=== PATIENT | female | born 1965 | race Caucasian/White ===

== ENCOUNTER 2019-06-08 15:23 | Inpatient (IN) | payer BC ==
[~2019-06-08] VITALS: Ht 162.6 cm; Wt 72.6 kg
[2019-06-08] MEDS ORDERED: ACETAMINOPHEN ES 500 MG TABLET PO ONE (15:45)
[2019-06-08] MEDS ORDERED: IV NORMAL SALINE 1000 ML BAG IV ONE (15:45)
--- NOTE | 2019-06-08 15:50 | NUR ---
Patient ambulated with stable gait. Speech is clear, speaks in complete sentences. A/Ox4. No acute neuro deficits noted. Patient came for a wound check which she thinks is possibly infected. According to patient, she had a procedure for tummy tuck a few weeks ago; patient had a tummy tuck and has a drain in place. Respiratory even and unlabored, no cough no sob. No cardiovascular distress noted, all pulses palpable. Denies any n/v/d. Patient in bed at lowest position, sr upx2, call light within reach. Fall precautions implemented per protocol.
[2019-06-08] MEDS ORDERED: ACETAMINOPHEN ES 500 MG TABLET ONE (15:53)
[2019-06-08] MEDS ORDERED: IOHEXOL 300MG/ML 100 ML INFUS..BTL ONE (15:55)
[2019-06-08] MEDS ORDERED: SWABABLE VALVE TRANSFER SET EA MC ONE (15:55)
[2019-06-08] MEDS ORDERED: IV NORMAL SALINE 250 ML IV ONE (15:55)
[2019-06-08 16:05] LABS: BASOPHILS % (AUTO) 0.9 % (0.0-2.0); EOSINOPHILS # (AUTO) 0.2 K/uL (0.0-0.7); EOSINOPHILS % (AUTO) 5.2 % (0.0-7.0); HEMATOCRIT 27.1 % (31.2-41.9); HEMOGLOBIN 8.7 g/dL (10.9-14.3); LYMPHOCYTES # (AUTO) 0.9 K/uL (20.0-40.0); LYMPHOCYTES % (AUTO) 26.8 % (20.5-51.5); MEAN CORPUSCULAR HEMOGLOBIN 28.4 uug (24.7-32.8); MEAN CORPUSCULAR HGB CONC 32 g/dL (32.3-35.6); MEAN CORPUSCULAR VOLUME 88.3 fL (75.5-95.3); MONOCYTES # (AUTO) 0.3 K/uL (2.0-10.0); MONOCYTES % (AUTO) 7.7 % (0.0-11.0); NEUTROPHILS % (AUTO) 59.4 % (38.5-71.5); PLATELET COUNT (AUTO) 184 K/uL (179-408); RED BLOOD CELL COUNT(AUTO) 3.07 MIL/uL (3.63-4.92); WHITE BLOOD COUNT (AUTO) 3.3 K/uL (3.8-11.8)
[2019-06-08 16:15] LABS: CREATININE 0.8 mg/dL (0.6-1.3)
--- NOTE | 2019-06-08 16:26 | NUR ---
Patient transported to CT in stable condition. NAD, VSS
[2019-06-08 16:27] LABS: BILIRUBIN,DIRECT 0.2 mg/dL (0.0-0.2); BILIRUBIN,TOTAL 0.8 mg/dL (0.2-1.0); TOTAL PROTEIN, SERUM 7.1 g/dL (6.4-8.2)
--- NOTE | 2019-06-08 16:44 | NUR ---
Patient back in room from CT in stable condition.
[2019-06-08] MEDS ORDERED: PIPERACILLIN/TAZOBACTAM/D5W 50 ML IV ONE (16:59)
[2019-06-08] MEDS ORDERED: VANCOMYCIN IV 1,000 MG in IV DEXTROSE 5% 250 ML IV ONE (17:00)
[2019-06-08] MEDS ORDERED: VANCOMYCIN IV 200 ML ONE (17:00)
[2019-06-08] MEDS ORDERED: PIPERACILLIN SODIUM/TAZOBACTAM 3.375 G in IV DEXTROSE 5% 50 ML IV ONE (17:00)
[2019-06-08] MEDS ORDERED: CEPH500C2 PO (17:06)
[2019-06-08] MEDS ORDERED: ACET-2154 PO (17:07)
[2019-06-08 17:33] LABS: *BILIRUBIN,URIN NEGATIVE (NEGATIVE); *BLOOD, URINE NEGATIVE (NEGATIVE); *CLARITY,URINE CLEAR (CLEAR); *COLOR,URINE YELLOW (YELLOW); *KETONES,URINE NEGATIVE (NEGATIVE); LEUKOCYTE ESTERASE ,URINE NEGATIVE (NEGATIVE); NITRITE, URINE NEGATIVE (NEGATIVE); UGLUCOSE NEGATIVE (NEGATIVE)
[2019-06-08 17:37] LABS: *URINE HCG, QUAL NEGATIVE (NEGATIVE)
[2019-06-08 17:40] LABS: BACTERIA,URINE NONE SEEN /HPF (NONE SEEN); RBC,URINE 0-3 /HPF (0-3); SQUAMOUS EPITHELIAL CELL,UR FEW /HPF (NONE SEEN); WBC,URINE 0-3 /HPF (0-3)
--- NOTE | 2019-06-08 17:40 | NUR ---
Dr. Azul on the line with ERMD.
--- NOTE | 2019-06-08 17:47 | NUR ---
ERMD on the line with Dr. Peterson (surgery)
--- NOTE | 2019-06-08 17:54 | NUR ---
Report given to RONEL Mckinney
[2019-06-08] MEDS ORDERED: ONDANSETRON 4 MG/2 ML VIAL IV PRN (18:00)
[2019-06-08] MEDS ORDERED: ACETAMINOPHEN 325 MG TABLET PO PRN (18:00)
[2019-06-08] MEDS ORDERED: Z GUARD REMEDY PASTE 57 GM TUBE TOP PRN (18:00)
--- NOTE | 2019-06-08 18:14 | NUR ---
Sepsis fluid reassessment to be completed in inpatient.
--- NOTE | 2019-06-08 18:14 | NUR ---
Patient transported to [place] in stable condition via [facility]
--- NOTE | 2019-06-08 18:30 | NUR ---
Pt is in no acute distress. Kept Pt NPO secondary to questionable surgery to be done tonight.
[2019-06-08 18:34] VITALS: BP 142/78
--- NOTE | 2019-06-08 18:39 | NUR ---
PHARMACY CLINICAL NOTES ( VANCOMYCIN DOSING) S: 53 YO female admitted for possible wound infection s/p [facility] surgery. ordered zosyn and Vancomycin O: BUN/SCR 7/0.8, WBC 3.3 , TEMP 98.2, DOSING WT 160 LBS, T 1/2 11HRS A/P: PT received 1 dose of Vancomycin 1000mg in ER @ 1800 (dose #1), will continue with 1000 mg q12h. next dose (#2) due tomorrow @ 0600. Per calculation 1000 q12h will yield peak of 36 and trough of 17. RX will continue to monitor renal fxn and plan to order trough prior to 4th dose on 06/10 ~ 0600. Will continue to follow up
[2019-06-08] MEDS: IV NS 1000 ML 1,000 ML IV PRN (19:00)
--- NOTE | 2019-06-08 19:00 | NUR ---
ADMITTED PATIENT IN MED SURG FLOOR UNDER THE CARE OF DR. KING. PATIENT ALERT ORIENTED, WITH LOWER ABDOMINAL SWELLING AND REDNESS, ALSO TWO ABDOMINAL DRAIN WITH NO DRAINAGE NOTED. KEPT PATIENT NPO.
[2019-06-08 20:31] VITALS: BP 128/64
--- NOTE | 2019-06-08 20:46 | NUR ---
PLACE TO ANA DOM[facility]NGUEZ SURGEON, AND NOTIFY MD PATIENT, JASON HILLS HAS CONSULT, STATED HE WILL SEE PATIENT IN THE MORNING, AND KEEP PATIENT NPO, NOTIFY THE PATIENT. Addendum: 06/08/19 at 2053 by DAYNE BRYANT RN PLACE A CALL TO ANA DOM[facility]NGUEZ SURGEON, AND NOTIFY MD THAT PATIENT JASON HILLS HAS CONSULT, STATED HE WILL SEE THE PATIENT IN THE MORNING, AND KEEP PATIENT NPO, NOTIFY THE PATIENT.
[2019-06-08] MEDS: PIPERACILLIN SODIUM/TAZOBACTAM 4.5 G in IV DEXTROSE 5% 50 ML IV SCH (21:24)
[2019-06-09] VITALS: BP 125/65
[2019-06-09] MEDS: HYDROCODONE/APAP 5-325MG TABLET PO PRN ×3 (01:34→20:25)
[2019-06-09 04:00] VITALS: BP 120/72
[2019-06-09] MEDS ORDERED: VANCOMYCIN IV 1,000 MG in IV DEXTROSE 5% 250 ML IV SCH (06:00)
[2019-06-09 07:58] LABS: CREATININE 0.8 mg/dL (0.6-1.3); MAGNESIUM 1.9 mg/dL (1.8-2.4); PHOSPHOROUS 4.1 mg/dL (2.5-4.9); POTASSIUM 3.5 mmol/L (3.5-5.1)
[2019-06-09 07:59] LABS: BASOPHILS % (AUTO) 0.6 % (0.0-2.0); EOSINOPHILS # (AUTO) 0.2 K/uL (0.0-0.7); EOSINOPHILS % (AUTO) 7.4 % (0.0-7.0); HEMATOCRIT 23.7 % (31.2-41.9); HEMOGLOBIN 7.5 g/dL (10.9-14.3); LYMPHOCYTES % (AUTO) 36.7 % (20.5-51.5); MEAN CORPUSCULAR HEMOGLOBIN 28.1 uug (24.7-32.8); MEAN CORPUSCULAR HGB CONC 32 g/dL (32.3-35.6); MEAN CORPUSCULAR VOLUME 88.2 fL (75.5-95.3); MONOCYTES # (AUTO) 0.2 K/uL (2.0-10.0); MONOCYTES % (AUTO) 8.9 % (0.0-11.0); NEUTROPHILS # (AUTO) 1.3 K/uL (1.8-8.9); NEUTROPHILS % (AUTO) 46.4 % (38.5-71.5); RED BLOOD CELL COUNT(AUTO) 2.68 MIL/uL (3.63-4.92); WHITE BLOOD COUNT (AUTO) 2.7 K/uL (3.8-11.8)
--- NOTE | 2019-06-09 08:00 | NUR ---
PT is alert and oriented. Shannon drain x 2 mid abdomen no drainage noted. Discussed plan of care with patient re: Pain management. Pt passing gas. Mid abdomen tender to touch. Dr cook here to see pt. PT is to have IR to drain abd abscess. Consent signed. Shannon drain covered with 4x4 dry dressing.
[2019-06-09] MEDS: PIPERACILLIN SODIUM/TAZOBACTAM 4.5 G in IV DEXTROSE 5% 50 ML IV SCH ×2 (08:16→14:08)
--- NOTE | 2019-06-09 09:00 | NUR ---
Inquired with administrative director re who will remove of dav drain of pt. [place] drain is to be taken out by [employer] hospitalist.
[2019-06-09 09:03] LABS: EOSINOPHILS % (MANUAL) 5 % (0-8); LYMPHOCYTES % (MANUAL) 44 % (20-40); MONOCYTES % (MANUAL) 7 % (2-10); NEUTROPHILS % (MANUAL) 44 % (42-75)
[2019-06-09 09:04] LABS: PLATELET COUNT (AUTO) 134 K/uL (179-408)
--- NOTE | 2019-06-09 10:45 | NUR ---
PHARMACY CLINICAL NOTES ( VANCOMYCIN DOSING) S: To continue vanco dosing for this 53 YO female for possible wound infection s/p tummy [facility] surgery. O: BUN/SCR 5/0.8, WBC 2.7 , TEMP 98.5 ht 162 cm wt 72 kg A/P: Will start vanco 1gm IVPB q14h for predicted vanco trough level of 16 mcg/ml at steady state. 2nd dose today at 2130. Will continue to monitor renal fxn & adjust the dose if needed. Plan to order trough prior to 4th dose (not yet ordered). Will continue to follow up
--- NOTE | 2019-06-09 11:00 | NUR ---
Shannon drain x 2 removed by Vince TALLEY. Covered with abd gauze will observe for any bleeding.
[2019-06-09 11:01] VITALS: BP 135/86
[2019-06-09] MEDS ORDERED: LIDOCAINE HCL 1% 20 ML VIAL ONE (11:54)
--- NOTE | 2019-06-09 15:00 | NUR ---
PT sent down to Radiology for procedure. PT is in no acute distress. [place] drain site no bleeding noted.
[2019-06-09 15:23] VITALS: BP 120/78
[2019-06-09] MEDS ORDERED: FENTANYL CITRATE 100 MCG/2 ML AMPUL IV PRN (16:00)
[2019-06-09] MEDS ORDERED: NALOXONE HCL 0.4 MG/ML AMPUL IV PRN (16:00)
[2019-06-09] MEDS ORDERED: MIDAZOLAM HCL 2 MG/2 ML VIAL IV PRN (16:00)
[2019-06-09 18:19] LABS: HEMATOCRIT 25.2 % (31.2-41.9); HEMOGLOBIN 8.1 g/dL (10.9-14.3)
--- NOTE | 2019-06-09 18:47 | NUR ---
Clarified with DR FRIED pt to be NPO after MN and consent received evacuation of hematoma tomorrow after noon. Pt is in no acute distress. Call light is within reach .
--- NOTE | 2019-06-09 19:30 | NUR ---
Received patient awake and alert in bed, no acute distress noted. Family at bedside. Complains of some abdominal pain, but is tolerable. No complaints of SOB. IV on the left forearm is intact and patent. Safety measures initiated. Bed is low and locked, call light within reach. Will continue to monitor.
[2019-06-09] MEDS: IV NS 1000 ML 1,000 ML IV PRN (20:17)
[2019-06-09 20:19] VITALS: BP 124/84
[2019-06-09] MEDS: MAGNESIUM HYDROXIDE 30 ML LIQUID UDC PO PRN (20:32)
--- NOTE | 2019-06-09 21:02 | NUR ---
Abdomen is tender to touch, no drainage noted from where [place] drain was. Patient complained of pain 7/10, PRN [place] was given. Patient aware of NPO status after midnight. Will continue to monitor.
[2019-06-09] MEDS: VANCOMYCIN IV 1,000 MG in IV DEXTROSE 5% 250 ML IV SCH (21:26)
[2019-06-09] MEDS: PIPERACILLIN/TAZOBACTAM/D5W 3.375 G in IV DEXTROSE 5% 50 ML IV SCH (23:12)
[2019-06-10 06:07] VITALS: BP 122/65
[2019-06-10] MEDS: PIPERACILLIN/TAZOBACTAM/D5W 3.375 G in IV DEXTROSE 5% 50 ML IV SCH ×3 (06:13→21:47)
[2019-06-10] MEDS: HYDROCODONE/APAP 5-325MG TABLET PO PRN ×2 (06:27→13:53)
[2019-06-10 06:28] LABS: BASOPHILS % (AUTO) 0.4 % (0.0-2.0); EOSINOPHILS # (AUTO) 0.2 K/uL (0.0-0.7); EOSINOPHILS % (AUTO) 8.6 % (0.0-7.0); HEMATOCRIT 25.7 % (31.2-41.9); HEMOGLOBIN 8.2 g/dL (10.9-14.3); LYMPHOCYTES # (AUTO) 0.8 K/uL (20.0-40.0); LYMPHOCYTES % (AUTO) 35.1 % (20.5-51.5); MEAN CORPUSCULAR HEMOGLOBIN 28.1 uug (24.7-32.8); MEAN CORPUSCULAR HGB CONC 32 g/dL (32.3-35.6); MEAN CORPUSCULAR VOLUME 87.7 fL (75.5-95.3); MONOCYTES # (AUTO) 0.2 K/uL (2.0-10.0); NEUTROPHILS % (AUTO) 45.9 % (38.5-71.5); PLATELET COUNT (AUTO) 168 K/uL (179-408); RED BLOOD CELL COUNT(AUTO) 2.93 MIL/uL (3.63-4.92); WHITE BLOOD COUNT (AUTO) 2.2 K/uL (3.8-11.8)
[2019-06-10 06:43] LABS: BILIRUBIN,DIRECT 0.2 mg/dL (0.0-0.2); BILIRUBIN,TOTAL 0.7 mg/dL (0.2-1.0); CREATININE 0.8 mg/dL (0.6-1.3); POTASSIUM 3.8 mmol/L (3.5-5.1); TOTAL PROTEIN, SERUM 6.3 g/dL (6.4-8.2)
--- NOTE | 2019-06-10 06:48 | NUR ---
Patient slept well, no distress noted. Complained of abdominal pain with PRN [place] given x2. Patient kept NPO after midnight. Antibiotics given as ordered. Safety measures given. Will endorse to next shift.
--- NOTE | 2019-06-10 08:00 | NUR ---
Pt is in no acute distress. Kept pt NPO status for evacuation of hematoma on abd . Shannon drain site has scant serous drainage. Abd is semi hard when palpated. IV site on L ac intact. Pt denies any c/o pain. Discuss plan of care with patient regarding proper pain management. Pt states that she is passing gas.
--- NOTE | 2019-06-10 08:56 | NUR ---
PHARMACY CLINICAL NOTES ( VANCOMYCIN DOSING) S: To continue vanco dosing for this 53 YO female for possible wound infection s/p tummy [facility] surgery. O: BUN/SCR 7/0.8, WBC 2.2 , TEMP 98.4 ht 162 cm wt 72 kg A/P: Will continue same dose of vanco 1gm IVPB q14h for predicted vanco trough level of 16 mcg/ml at steady state. 3rd dose today at 1130. Will continue to monitor renal fxn & adjust the dose if needed. Plan to order trough prior to 4th dose (ordered for 06/11 at 0100- RN has been informed to hold 0130 am dose if vanco trough level is above 20 mcg/ml). Pharmacy will review the level in am & adjust the dose if needed. Will continue to follow up
[2019-06-10] MEDS: VANCOMYCIN IV 1,000 MG in IV DEXTROSE 5% 250 ML IV SCH (11:31)
[2019-06-10 11:42] VITALS: BP 127/77
[2019-06-10] MEDS: IV NS 1000 ML 1,000 ML IV PRN (13:30)
--- NOTE | 2019-06-10 13:30 | NUR ---
Pts iv infiltrated on left f/a. New IV started on right ac with #20 gauge. Pt is in no acute distress. Call light is within reach.
[2019-06-10] MEDS ORDERED: FENTANYL CITRATE 250 MCG/5 ML AMPUL ONE (15:24)
[2019-06-10] MEDS ORDERED: MIDAZOLAM HCL 2 MG/2 ML VIAL ONE (15:24)
[2019-06-10] MEDS ORDERED: ROCURONIUM BROMIDE 50 MG/5 ML VIAL ONE (15:25)
--- NOTE | 2019-06-10 15:40 | NUR ---
Pt is picked up by surgery team. Consent signed.
[2019-06-10 15:43] VITALS: BP 115/75
[2019-06-10] MEDS ORDERED: POLYMYXIN B SULFATE 500,000 UNITS, BACITRACIN 50,000 UNITS, NORMAL SALINE 20 ML MC ONE ×3 (15:45)
[2019-06-10] MEDS ORDERED: BUPIVACAINE/EPI PF 0.25% 30 ML VIAL ONE (15:56)
[2019-06-10] MEDS ORDERED: LIDOCAINE-MPF 2% 5 ML VIAL IJ ONE (16:48)
[2019-06-10] MEDS ORDERED: PROPOFOL 200 MG/20 ML BOTTLE IV ONE (16:48)
[2019-06-10] MEDS ORDERED: METOCLOPRAMIDE HCL 10 MG/2 ML VIAL IV ONE (16:48)
[2019-06-10] MEDS ORDERED: ONDANSETRON 4 MG/2 ML VIAL IV ONE (16:48)
[2019-06-10 18:13] VITALS: BP 113/75
[2019-06-10] MEDS: MAGNESIUM HYDROXIDE 30 ML LIQUID UDC PO PRN (18:49)
--- NOTE | 2019-06-10 20:00 | NUR ---
Patient received into care with family/friend at bedside. Patient has no complaints of pain or discomfort at this time. IV site is patent and intact running NS. Call and personal items are within reach. All safety and fall precaution measures are in place. Will continue to monitor and assess.
[2019-06-10 20:02] VITALS: BP 107/68
[2019-06-10] MEDS: MORPHINE SULFATE 2 MG/1 ML DISP.SYRIN IV PRN (21:48)
[2019-06-11] MEDS: VANCOMYCIN IV 1,000 MG in IV DEXTROSE 5% 250 ML IV SCH ×2 (01:53→15:48)
[2019-06-11] MEDS: MORPHINE SULFATE 2 MG/1 ML DISP.SYRIN IV PRN ×2 (03:21→14:14)
[2019-06-11] MEDS: HYDROCODONE/APAP 5-325MG TABLET PO PRN ×3 (05:29→21:56)
[2019-06-11] MEDS: PIPERACILLIN/TAZOBACTAM/D5W 3.375 G in IV DEXTROSE 5% 50 ML IV SCH ×3 (05:29→21:43)
[2019-06-11 05:41] VITALS: BP 122/80
[2019-06-11 05:59] LABS: BASOPHILS % (AUTO) 0.3 % (0.0-2.0); EOSINOPHILS # (AUTO) 0.2 K/uL (0.0-0.7); EOSINOPHILS % (AUTO) 4.5 % (0.0-7.0); HEMATOCRIT 29.1 % (31.2-41.9); HEMOGLOBIN 9.3 g/dL (10.9-14.3); LYMPHOCYTES % (AUTO) 23.3 % (20.5-51.5); MEAN CORPUSCULAR HGB CONC 32 g/dL (32.3-35.6); MONOCYTES # (AUTO) 0.3 K/uL (2.0-10.0); MONOCYTES % (AUTO) 6.5 % (0.0-11.0); NEUTROPHILS # (AUTO) 2.9 K/uL (1.8-8.9); NEUTROPHILS % (AUTO) 65.4 % (38.5-71.5); PLATELET COUNT (AUTO) 214 K/uL (179-408); RED BLOOD CELL COUNT(AUTO) 3.31 MIL/uL (3.63-4.92); WHITE BLOOD COUNT (AUTO) 4.4 K/uL (3.8-11.8)
[2019-06-11 06:30] LABS: CREATININE 0.9 mg/dL (0.6-1.3); POTASSIUM 3.8 mmol/L (3.5-5.1)
--- NOTE | 2019-06-11 07:30 | NUR ---
Received patient in Bed, awake and verbally responsive. No Signs of distress noted. No SOB. No complain of Pain or discomfort. IV ATB infusing well on Left hand, No signs of Infiltration noted. Will continue to monitor.
[2019-06-11] MEDS: NEOMY/BACITRAC/POLYMI OINT 28.35 GM TUBE TOP SCH ×2 (09:01→17:10)
--- NOTE | 2019-06-11 09:23 | NUR ---
PHARMACY CLINICAL NOTES ( VANCOMYCIN DOSING) S: To continue vanco dosing for this 53 YO female for possible wound infection s/p tummy tuck surgery. O: BUN/SCR 6/0.9, WBC 4.4 , TEMP 98.4 ht 162 cm wt 72 kg Trough 06/11 @0100: 16.7 A/P: As trough within range, will continue vanco regimen of 1gm q14h for now. Will continue to follow renal function and adjust or re-check levels if condition were to change. Will continue to monitor
[2019-06-11 11:15] VITALS: BP 112/65
[2019-06-11] MEDS: IV NS 1000 ML 1,000 ML IV PRN (11:16)
[2019-06-11 15:19] VITALS: BP 111/55
--- NOTE | 2019-06-11 18:12 | NUR ---
Patient in Bed, awake and verbally responsive. No signs of Distress noted. No SOB. Pain Medications given as ordered. Wound treatment done. All needs attended and met. kept the call light within easy reach. Will endorse to Oncoming Nurse.
[2019-06-11 19:38] VITALS: BP 114/75
--- NOTE | 2019-06-11 20:00 | NUR ---
Patient received into care, sitting up in bed, with friend at bedside. Patient is alert/oriented x 4 and has no complaints of pain or discomfort at this time. Call light and personal items are within reach. All safety and fall precaution measures are in place. Will continue to monitor and assess.
[2019-06-12] MEDS: VANCOMYCIN IV 1,000 MG in IV DEXTROSE 5% 250 ML IV SCH (04:38)
[2019-06-12] MEDS: HYDROCODONE/APAP 5-325MG TABLET PO PRN (04:48)
[2019-06-12 05:07] VITALS: BP 117/70
[2019-06-12] MEDS: PIPERACILLIN/TAZOBACTAM/D5W 3.375 G in IV DEXTROSE 5% 50 ML IV SCH (06:43)
--- NOTE | 2019-06-12 07:10 | NUR ---
Received patient in Bed, awake and verbally responsive. No signs of distress noted. No SOB. No complain or discomfort. IV ATB infusing well. No ASE noted. Call light within easy reach. Will continue to monitor.
[2019-06-12] MEDS: NEOMY/BACITRAC/POLYMI OINT 28.35 GM TUBE TOP SCH (09:04)
--- NOTE | 2019-06-12 10:04 | NUR ---
PHARMACY CLINICAL NOTES ( VANCOMYCIN DOSING) S: To continue vanco dosing for this 53 YO female for possible wound infection s/p tummy tuck surgery. O: BUN/SCR 6/0.9 (06/11), WBC 4.4 (06/11) , TEMP 98 ht 162 cm wt 72 kg Trough 06/11 @0100: 16.7 A/P: As pt remains stable, will continue vanco regimen of 1gm q14h for now. Will continue to follow renal function and adjust or re-check levels if condition were to change. Will continue to monitor
--- NOTE | 2019-06-12 11:00 | NUR ---
Seen by Dr. Peterson and taped the abdominal Wound.
[2019-06-12] MEDS ORDERED: AMOX-430 PO (11:04)
[2019-06-12] MEDS ORDERED: OXYC-128 PO (11:04)
[2019-06-12] MEDS ORDERED: SULF1TAB48 PO (11:04)
[2019-06-12 11:13] VITALS: BP 111/79
[2019-06-12] MEDS ORDERED: HYDR-3326 PO (11:26)
--- NOTE | 2019-06-12 11:50 | NUR ---
Patient is awake, alert and verbally responsive. No signs of distress noted. No SOB. No complain of Pain/discomfort noted. Discharge Instructions given and verbalized Understanding. Removed IV site and wrist Band. Accompanied patient via Wheelchair to her car in stable condition.
== END 2019-06-12 11:50 | disposition home or self-care (01) | DRG 920 ==
LOC: ER 15:26 → MEDSURG3 18:01
PROVIDERS: ADMIT Internal Medicine; ATTEND Internal Medicine
PROC: 0J980ZX Drainage of Abdomen Subcutaneous Tissue and Fascia, Open Approach, Diagnostic (ICD-10-PCS; principal; 2019-06-10)
DX: L76.34 Postprocedural seroma of skin and subcutaneous tissue following other procedure (principal); T81.43XA Infection following a procedure, organ and space surgical site, initial encounter; L02.211 Cutaneous abscess of abdominal wall; L76.32 Postprocedural hematoma of skin and subcutaneous tissue following other procedure; D63.8 Anemia in other chronic diseases classified elsewhere; D69.6 Thrombocytopenia, unspecified; K57.30 Diverticulosis of large intestine without perforation or abscess without bleeding; R74.0 Nonspecific elevation of levels of transaminase and lactic acid dehydrogenase [LDH]; Z91.013 Allergy to seafood; R60.1 Generalized edema
CPT/HCPCS: 36415; 70030-TC; 72192; 76705; 83605; 83735; 84100; 84703; 85018; 85025; 85730; 86803; 87040; 87070; 87075; 87086; 87806; 93005; A4649; A4663; A9150; G0378; J2250; J2270; J2405; J2543; J2765; J3010; J3370; J3490; J7030; J7040; J7050; J7060; Q9967

== ENCOUNTER 2019-07-22 15:41 | Emergency (ER) | payer SELFPAY ==
[~2019-07-22] VITALS: Ht 162.6 cm; Wt 75.3 kg
[~2019-07-22 15:41] MED LIST: ACET-2154 PO; AMOX-430 PO; HYDR-3326 PO; SULF1TAB48 PO
[2019-07-22 17:14] VITALS: BP 141/89
--- NOTE | 2019-07-22 17:14 | NUR ---
Patient discharged to home in stable conditon. Written and verbal after care instructions given. Patient verbalizes understanding of instructions.pt walked in steady gait.
== END 2019-07-22 17:15 | disposition home or self-care (01) ==
LOC: ER 15:42
DX: S22.42XA Multiple fractures of ribs, left side, initial encounter for closed fracture (principal); Z88.6 Allergy status to analgesic agent; Z88.8 Allergy status to other drugs, medicaments and biological substances; Z79.899 Other long term (current) drug therapy; W22.8XXA Striking against or struck by other objects, initial encounter; Y93.89 Activity, other specified; Y92.89 Other specified places as the place of occurrence of the external cause; Y99.8 Other external cause status
CPT/HCPCS: 71101; A4663

== ENCOUNTER 2023-01-26 10:25 | Emergency (ER) | payer OTHER ==
[~2023-01-26] VITALS: Ht 162.6 cm; Wt 72.6 kg
[2023-01-26 10:25] VITALS: O2SAT 98
[2023-01-26] MEDS ORDERED: MORPHINE SULFATE 2 MG/1 ML DISP.SYRIN IM ONE (10:45)
[2023-01-26] MEDS ORDERED: MORPHINE SULFATE 4 MG/1 ML DISP.SYRIN ONE (10:50)
[2023-01-26] MEDS ORDERED: MORPHINE SULFATE 2 MG/1 ML DISP.SYRIN ONE (10:50)
[2023-01-26] MEDS ORDERED: TDAP DIPH,PERTUSS,TET VAC/PF 0.5 ML DISP.SYRIN IM ONE ×2 (11:00→11:03)
[2023-01-26] MEDS ORDERED: HYDR-3972 PO (11:02)
[2023-01-26] MEDS ORDERED: ONDANSETRON ODT 4 MG TAB.RAPDIS ONE (11:06)
[2023-01-26] MEDS ORDERED: ONDANSETRON ODT 4 MG TAB.RAPDIS SL ONE (11:15)
== END 2023-01-26 11:58 | disposition home or self-care (01) ==
LOC: ER 10:25
DX: S42.202A Unspecified fracture of upper end of left humerus, initial encounter for closed fracture (principal); S09.90XA Unspecified injury of head, initial encounter; Z90.710 Acquired absence of both cervix and uterus; Z88.6 Allergy status to analgesic agent; Z91.013 Allergy to seafood; Z79.2 Long term (current) use of antibiotics; Z79.899 Other long term (current) drug therapy; W05.1XXA Fall from non-moving nonmotorized scooter, initial encounter; Y93.89 Activity, other specified; Y92.89 Other specified places as the place of occurrence of the external cause; Y99.8 Other external cause status
CPT/HCPCS: 99283; 73030; 90715; 90471; J2270 ×2; A4663; Q0162